=== PATIENT | male | born 1950 | race Caucasian/White ===

== ENCOUNTER → 2019-04-30 | Outpatient (CLI) | payer OTHER | LOC: RAD 11:21 | DX: R09.02 Hypoxemia (principal) ==

== ENCOUNTER → 2019-05-19 | Outpatient (CLI) | payer OTHER | LOC: CAT 09:30 | DX: J98.4 Other disorders of lung (principal); M47.814 Spondylosis without myelopathy or radiculopathy, thoracic region ==

== ENCOUNTER → 2020-03-14 | Outpatient (CLI) | payer OTHER | LOC: RAD 14:47 | PROVIDERS: ATTEND Pediatrics | DX: J84.10 Pulmonary fibrosis, unspecified (principal) ==

== ENCOUNTER → 2020-07-12 | Outpatient (CLI) | payer OTHER | LOC: RAD 08:54 | PROVIDERS: ATTEND Pediatrics | DX: R06.02 Shortness of breath (principal); R06.00 Dyspnea, unspecified ==